=== PATIENT | female | born 1990 | race Caucasian/White ===

== ENCOUNTER 2016-11-24 19:36 | Emergency (ER) | payer MEDICAID ==
[2016-11-24 22:02] VITALS: BP 123/77
== END 2016-11-24 22:04 | disposition home or self-care (01) ==
LOC: ED 19:36
DX: M54.5 Low back pain (principal)
CPT/HCPCS: J1885; J2270; Q0162

== ENCOUNTER 2017-10-11 07:23 | Emergency (ER) | payer SELFPAY ==
[~2017-10-11] VITALS: Ht 167.6 cm; Wt 96.6 kg
[2017-10-11 07:29] VITALS: Ht 167.6 cm; Wt 96.6 kg
[2017-10-11 08:35] VITALS: BP 107/80
== END 2017-10-11 08:35 | disposition home or self-care (01) ==
LOC: ED 07:23
DX: M79.641 Pain in right hand (principal)
CPT/HCPCS: J1885

== ENCOUNTER 2017-12-07 10:31 | Emergency (ER) | payer MEDICAID ==
[~2017-12-07] VITALS: Ht 162.6 cm; Wt 95.2 kg
[2017-12-07 10:37] VITALS: Ht 162.6 cm; Wt 95.2 kg
[2017-12-07 13:32] VITALS: BP 102/75
== END 2017-12-07 13:30 | disposition home or self-care (01) ==
LOC: ED 10:31
DX: S96.911A Strain of unspecified muscle and tendon at ankle and foot level, right foot, initial encounter (principal); X58.XXXA Exposure to other specified factors, initial encounter; Y93.89 Activity, other specified; Y92.89 Other specified places as the place of occurrence of the external cause; Y99.8 Other external cause status
CPT/HCPCS: J1885

== ENCOUNTER 2018-03-18 22:10 | Emergency (ER) | payer SELFPAY ==
[~2018-03-18] VITALS: Ht 167.6 cm; Wt 98.4 kg
[2018-03-18 22:22] VITALS: Ht 167.6 cm; Wt 98.4 kg
[2018-03-18 23:42] LABS: BASOPHIL % 0.5 % (0-2); PLATELET COUNT 293 x10^3mcL (130-400); RED CELL DISTRIBUTION WIDTH 14.2 % (11.5-14.5)
[2018-03-18 23:53] LABS: CALCIUM 8.3 mg/dL (8.5-10.1); CHLORIDE SERUM 105 mmol/L (98-107); CREATININE SERUM 0.6 mg/dL (0.6-1.0); GFR1 > 60 mL/min; GLUCOSE SERUM 98 mg/dL (74-106); POTASSIUM SERUM 3.4 mmol/L (3.5-5.1); SODIUM SERUM 138 mmol/L (136-145)
[2018-03-18 23:58] LABS: ALKALINE PHOSPHATASE 54 U/L (46-116); ALT/SGPT 41 U/L (14-59); AMYLASE 46 U/L (25-115); AST/SGOT 20 U/L (15-37); BILIRUBIN TOTAL 0.3 mg/dL (0.20-1.00); LIPASE 77 IU/L (73-393)
[2018-03-19] LABS: ALBUMIN 3.2 g/dL (3.4-5.0)
[2018-03-19 00:02] LABS: UA SPECIFIC GRAVITY 1.015 (1.005-1.035); microscopic required? YES; urine erythrocyte TRACE (NEGATIVE)
[2018-03-19 01:17] VITALS: BP 117/74
== END 2018-03-19 01:17 | disposition home or self-care (01) ==
LOC: ED 22:10
PROVIDERS: Emergency Medicine
DX: O23.40 Unspecified infection of urinary tract in pregnancy, unspecified trimester (principal); K76.0 Fatty (change of) liver, not elsewhere classified; Z3A.00 Weeks of gestation of pregnancy not specified
CPT/HCPCS: J7030; Q0092

== ENCOUNTER 2018-04-09 18:44 | Emergency (ER) | payer MEDICAID ==
[~2018-04-09] VITALS: Ht 165.1 cm; Wt 97.5 kg
[2018-04-09 19:36] VITALS: Ht 165.1 cm; Wt 97.5 kg
[2018-04-09 20:17] LABS: BASOPHIL % 0.4 % (0-2); PLATELET COUNT 288 x10^3mcL (130-400); RED CELL DISTRIBUTION WIDTH 14.1 % (11.5-14.5)
[2018-04-09 20:20] LABS: CALCIUM 8.7 mg/dL (8.5-10.1); CARBON DIOXIDE 24.7 mmol/L (21-32); CHLORIDE SERUM 102 mmol/L (98-107); CREATININE SERUM 0.6 mg/dL (0.6-1.0); GFR1 > 60 mL/min; GLUCOSE SERUM 96 mg/dL (74-106); POTASSIUM SERUM 3.5 mmol/L (3.5-5.1); SODIUM SERUM 133 mmol/L (136-145)
[2018-04-09 20:24] LABS: ALBUMIN 3.4 g/dL (3.4-5.0); ALKALINE PHOSPHATASE 63 U/L (46-116); ALT/SGPT 34 U/L (14-59); AST/SGOT 18 U/L (15-37); BILIRUBIN TOTAL 0.33 mg/dL (0.20-1.00); LIPASE 130 IU/L (73-393); TOTAL PROTEIN, SERUM 7.6 g/dL (6.4-8.2)
[2018-04-09 21:58] VITALS: BP 103/63
== END 2018-04-09 21:57 | disposition home or self-care (01) ==
LOC: ED 18:44
PROVIDERS: Emergency Medicine
DX: O23.41 Unspecified infection of urinary tract in pregnancy, first trimester (principal); K59.00 Constipation, unspecified; E11.9 Type 2 diabetes mellitus without complications; Z3A.09 9 weeks gestation of pregnancy
CPT/HCPCS: J2405; J7030

== ENCOUNTER 2018-04-28 06:28 | Emergency (ER) | payer MEDICAID ==
[~2018-04-28] VITALS: Ht 165.1 cm; Wt 96.6 kg
[2018-04-28 06:55] VITALS: Ht 165.1 cm; Wt 96.6 kg
[2018-04-28 08:14] LABS: BASOPHIL % 0.3 % (0-2); PLATELET COUNT 287 x10^3mcL (130-400); RED CELL DISTRIBUTION WIDTH 14.4 % (11.5-14.5)
[2018-04-28 10:10] VITALS: BP 101/54
== END 2018-04-28 10:10 | disposition home or self-care (01) ==
LOC: ED 06:28
PROVIDERS: Emergency Medicine
DX: O23.41 Unspecified infection of urinary tract in pregnancy, first trimester (principal); O20.8 Other hemorrhage in early pregnancy; E11.9 Type 2 diabetes mellitus without complications; Z3A.12 12 weeks gestation of pregnancy
CPT/HCPCS: 36415; J0696